=== PATIENT | male | born 1975 | race Caucasian/White ===

== ENCOUNTER 2016-11-08 08:56 | Emergency (ER) | payer BC, OTHER ==
[~2016-11-08] VITALS: Ht 177.8 cm; Wt 106.6 kg
[~2016-11-08 08:56] MED LIST: DOCU100C5 PO; ENAL20TA PO; HYDR-2666 PO; IBUP100T8 PO; MELO15TA6 PO; METO-269 PO; METR500T PO; TAMS0.4C97 PO
[2016-11-08 09:04] VITALS: BP 138/79
--- NOTE | 2016-11-08 09:52 | RAD ---
Indication pain. An AP view of the pelvis was obtained as well as AP and frog leg views targeted to the right hip. No acute or significant bony finding is seen. There are probable mild degenerative changes involving both hips
--- NOTE | 2016-11-08 09:57 | PHYS DOC ---
Past Medical History Past Medical History: Depression, Diverticulitis, Hypertension Additional Past Medical Histor: OSTEOARTHRITIS Past Surgical History: Other Additional Past Surgical Histo: COLON RE-SECTION, BILATERAL KNEE SCOPES Alcohol Use: None Drug Use: None Adult General Chief Complaint Chief Complaint: HIP PAIN [facility] HPI Patient is a 41 year old male presents to the emergency department with a history of right hip pain and discomfort that started last night. Patient states he has taken Avilla 7.5 with minimal relief. Patient states he has a history of osteoarthritis. Patient states that he does see pain management who recommended Naproxen for the pain in which patient states does not help. He states he has decrease ROM, denies numbness or tingling in the lower extremity. He denies trauma or injury. Review of Systems Review of Systems Constitutional: Denies fever or chills [] Eyes: Denies change in visual acuity, redness, or eye pain [] HENT: Denies nasal congestion or sore throat [] Respiratory: Denies cough or shortness of breath [] Cardiovascular: No additional information not addressed in HPI [] GI: Denies abdominal pain, nausea, vomiting, bloody stools or diarrhea [] : Denies dysuria or hematuria [] Musculoskeletal: Denies back pain. C/o right hip pain Integument: Denies rash or skin lesions [] Neurologic: Denies headache, focal weakness or sensory changes [] Endocrine: Denies polyuria or polydipsia [] Allergies Allergies Allergies Coded Allergies Type Severity Reaction Last Updated Verified lactose Adverse Reaction Unknown Diarrhea 05/19/13 Yes Physical Exam Physical Exam Constitutional: Well developed, well nourished, no acute distress, non-toxic appearance. [] HENT: Normocephalic, atraumatic, bilateral external ears normal, oropharynx moist, no oral exudates, nose normal. [] Eyes: PERRLA, EOMI, conjunctiva normal, no discharge. [] Neck: Normal range of motion, no tenderness, supple, no stridor. [] Cardiovascular:Heart rate regular rhythm, no murmur [] Lungs & Thorax: Bilateral breath sounds clear to auscultation [] Skin: Warm, dry, no erythema, no rash. [] Back: No tenderness Extremities: Right hip tenderness, no cyanosis, no clubbing, ROM intact, no edema. Decrease ROM noted with the right hip, patient is unable to straighten leg completely out. Discomfort noted with adduction of the right hip. Peripheral pulse 2+ cap refill brisk < 2 seconds. Patient with good sensation noted to the right foot. Neurologic: Alert and oriented X 3, normal motor function, normal sensory function, no focal deficits noted. [] Psychologic: Affect normal, judgement normal, mood normal. [] Current Patient Data Vital Signs Vital Signs Date Time Temp Pulse Resp B/P (MAP) Pulse Ox O2 Delivery O2 Flow Rate FiO2 11/08/16 09:04 98.0 83 18 94 Room Air 98.0 EKG EKG [] Radiology/Procedures Radiology/Procedures [facility] [address] [place] [address] IMAGING REPORT Signed PATIENT: SHEREEN DEWEY ACCOUNT: [id number] : 1975 LOCATION: ER AGE: 41 SEX: M EXAM STATUS: PRE ER ORD. PHYSICIAN: DIPIKA MCKEON APRN REASON: feels like hip is popped out PROCEDURE: HIP RIGHT 2V WITH PELVIS Indication pain. An AP view of the pelvis was obtained as well as AP and frog leg views targeted to the right hip. No acute or significant bony finding is seen. There are probable mild degenerative changes involving both hips DICTATED and SIGNED BY: YOLY VENEGAS MD DATE: 11/08/16 0948 CC: DIPIKA MCKEON APRN; CARLI GLASS DO ~ [] Course & Med Decision Making Course & Med Decision Making Pertinent Labs and Imaging studies reviewed. (See chart for details) Patient was provided with Percocet here in the emergency department. Patient x- ray of negative for abnormality. Patient will be discharge home with percocet for severe pain. Patient was instructed this medication will cause drowsiness do not take if you need to be alert and oriented. Patient was recommended to followup with pain management for further pain control. Patient agrees with discharge instructions, treatment regimen and followup recommendations. Signs and symptoms to return to the emergency department has been provided. [] Dragon Disclaimer Dragon Disclaimer This electronic medical record was generated, in whole or in part, using a voice recognition dictation system. Departure Departure Impression: Primary Impression: Right hip pain Disposition: HOME, SELF-CARE Condition: STABLE Referrals: CARLI GLASS DO (PCP) Patient Instructions: Hip Pain Additional Instructions: Activity as tolerated Stop taking the Avilla at this time Percocet for severe pain and discomfort. This medication will cause drowsiness do not take if you need to be alert and oriented Followup with your pain control physician for further pain management. Return to emergency department as needed for signs and symptoms that become worse. Scripts Oxycodone/Apap 5-325 (PERCOCET 5-325 MG TABLET) 1 Each Tablet 1-2 TAB PO Q4-6HRS, #15 TAB Prov: DIPIKA MCKEON APRN 11/08/16 DIPIKA MCKEON APRN November 08, 2016 09:57
[2016-11-08] MEDS ORDERED: oxyCODONE/APAP 5/325 1 TAB TABLET PO ONE (10:00)
[2016-11-08] MEDS ORDERED: OXYC-323 PO (10:11)
== END 2016-11-08 10:24 | disposition home or self-care (01) ==
LOC: ER 08:56
DX: M25.551 Pain in right hip (principal); F32.9 Major depressive disorder, single episode, unspecified; I10 Essential (primary) hypertension; M19.90 Unspecified osteoarthritis, unspecified site; Z91.011 Allergy to milk products
CPT/HCPCS: 73502; 99284-25

== ENCOUNTER → 2018-01-09 | Outpatient (CLI) | payer OTHER ==
[~2018-01-09] MED LIST changes: -DOCU100C5 PO; -ENAL20TA PO; -HYDR-2666 PO; -IBUP100T8 PO; -MELO15TA6 PO; -METO-269 PO; -METR500T PO; +REGADENOSON 0.4 MG/5 ML DISP.SYRIN. IV; -TAMS0.4C97 PO
== END | disposition home or self-care (01) ==
LOC: PCVCIMAG 08:28
DX: I10 Essential (primary) hypertension (principal); I63.9 Cerebral infarction, unspecified; R00.1 Bradycardia, unspecified; R07.9 Chest pain, unspecified
CPT/HCPCS: 78452; 93017; 93306; A9500; J2785

== ENCOUNTER 2018-11-12 06:31 | Emergency (ER) | payer OTHER ==
[~2018-11-12] VITALS: Ht 177.8 cm; Wt 118.8 kg
[~2018-11-12 06:31] MED LIST changes: +DOCU100C28 PO; +ENAL20TA PO; +HYDR-2761 PO; +IBUP100T8 PO; +MELO15TA6 PO; +METO-269 PO; +METR500T PO; +OXYC1TAB15 PO; -REGADENOSON 0.4 MG/5 ML DISP.SYRIN. IV; +TAMS0.4C97 PO
--- NOTE | 2018-11-12 06:51 | PHYS DOC ---
Past Medical History Past Medical History: Arthritis, Depression, Diverticulitis, Hypertension, Kidney Stone Additional Past Medical Histor: OSTEOARTHRITIS Past Surgical History: Other Additional Past Surgical Histo: COLON RE-SECTION, BILATERAL KNEE SCOPES Alcohol Use: None Drug Use: None Adult General Chief Complaint Chief Complaint: FLANK PAIN HPI HPI Patient is a 43 year old male who presents with complaining of left flank pain. Patient states he woke up at 2 AM because of severe left flank pain with radiation to left lower quadrant and genital area as a constant episodes of sharp and stabbing pain and more than 10 episodes of vomiting. Patient complaining of decrease of urine output without change of color. Patient denies fever and chills, diarrhea and constipation, chest pain and shortness of breath. Patient states he had history of kidney stone and thinks he had the same problem. Patient states he had left flank pain 2 days ago that last about 3 hours and resolved spontaneously. Review of Systems Review of Systems Constitutional: Denies fever or chills [] Eyes: Denies change in visual acuity, redness, or eye pain [] HENT: Denies nasal congestion or sore throat [] Respiratory: Denies cough or shortness of breath [] Cardiovascular: No additional information not addressed in HPI [] GI: Denies abdominal pain, bloody stools or diarrhea, reports nausea and vomiting [] : Denies dysuria or hematuria , reports flank pain[] Musculoskeletal: Denies back pain or joint pain [] Integument: Denies rash or skin lesions [] Neurologic: Denies headache, focal weakness or sensory changes [] Endocrine: Denies polyuria or polydipsia [] All other systems were reviewed and found to be within normal limits, except as documented in this note. Current Medications Current Medications Current Medications Medications (Trade) Dose Ordered Sig/Tsering Start Time Stop Time Status Last Admin Dose Admin Hydromorphone HCl (Dilaudid) 2 mg 1X ONCE 11/12/18 07:30 11/12/18 07:31 DC 11/12/18 07:35 2 MG Ketorolac Tromethamine (Toradol 30mg Vial) 30 mg 1X ONCE 11/12/18 07:00 11/12/18 07:01 DC 11/12/18 06:56 30 MG Ondansetron HCl (Zofran) 4 mg 1X ONCE 11/12/18 07:00 11/12/18 07:01 DC 11/12/18 06:56 4 MG Sodium Chloride 1,000 ml @ 1,000 mls/hr Q1H 11/12/18 07:00 11/12/18 07:59 DC 11/12/18 06:58 1,000 MLS/HR Tamsulosin HCl (Flomax) 0.4 mg 1X ONCE 11/12/18 08:15 11/12/18 08:16 DC Allergies Allergies Allergies Coded Allergies Type Severity Reaction Last Updated Verified lactose Adverse Reaction Unknown Diarrhea 05/19/13 Yes Physical Exam Physical Exam Constitutional: Well developed, well nourished, moderate distress, non-toxic appearance. [] HENT: Normocephalic, atraumatic, oropharynx moist. Eyes: PERRLA, EOMI, conjunctiva normal, no discharge. [] Neck: Normal range of motion, no tenderness, supple, no stridor. [] Cardiovascular:Heart rate regular rhythm, no murmur [] Lungs & Thorax: Bilateral breath sounds clear to auscultation [] Abdomen: Bowel sounds normal, soft, no tenderness, no masses, no pulsatile masses. [] Skin: Warm, dry, no erythema, no rash. [] Back: No tenderness, no CVA tenderness. [] Extremities: No tenderness, no cyanosis, no clubbing, ROM intact, no edema. [] Neurologic: Alert and oriented X 3, normal motor function, normal sensory function, no focal deficits noted. [] Psychologic: Affect normal, judgement normal, mood normal. [] Current Patient Data Vital Signs Vital Signs Date Time Temp Pulse Resp B/P (MAP) Pulse Ox O2 Delivery O2 Flow Rate FiO2 11/12/18 07:35 16 11/12/18 06:34 97.9 86 179/100 (126) 99 Room Air 97.9 Lab Values Laboratory Tests Test 11/12/18 06:10 White Blood Count 10.2 x10^3/uL (4.0-11.0) Red Blood Count 5.14 x10^6/uL (4.30-5.70) Hemoglobin 15.3 g/dL (13.0-17.5) Hematocrit 45.1 % (39.0-53.0) Mean Corpuscular Volume 88 fL (79-100) Mean Corpuscular Hemoglobin 30 pg (25-35) Mean Corpuscular Hemoglobin Concent 34 g/dL (31-37) Red Cell Distribution Width 13.8 % (11.5-14.5) Platelet Count 191 x10^3/uL (140-400) Neutrophils (%) (Auto) 67 % (31-73) Lymphocytes (%) (Auto) 27 % (24-48) Monocytes (%) (Auto) 5 % (0-9) Eosinophils (%) (Auto) 0 % (0-3) Basophils (%) (Auto) 0 % (0-3) Neutrophils # (Auto) 6.9 x10^3uL (1.8-7.7) Lymphocytes # (Auto) 2.8 x10^3/uL (1.0-4.8) Monocytes # (Auto) 0.5 x10^3/uL (0.0-1.1) Eosinophils # (Auto) 0.0 x10^3/uL (0.0-0.7) Basophils # (Auto) 0.0 x10^3/uL (0.0-0.2) Urine Collection Type Unknown Urine Color Yellow Urine Clarity Cloudy Urine pH 5.5 Urine Specific [place] >=1.030 Urine Protein 30 mg/dL (NEG-TRACE) Urine Glucose (UA) Negative mg/dL (NEG) Urine Ketones (Stick) Negative mg/dL (NEG) Urine Blood Large (NEG) Urine Nitrite Negative (NEG) Urine Bilirubin Negative (NEG) Urine Urobilinogen Dipstick 0.2 mg/dL (0.2 mg/dL) Urine Leukocyte Esterase Trace (NEG) Urine RBC Tntc /HPF (0-2) Urine WBC 1-4 /HPF (0-4) Urine Squamous Epithelial Cells Occ /LPF Urine Bacteria Few /HPF (0-FEW) Urine Mucus Marked /LPF Sodium Level 145 mmol/L (136-145) Potassium Level 3.7 mmol/L (3.5-5.1) Chloride Level 105 mmol/L (98-107) Carbon Dioxide Level 26 mmol/L (21-32) Anion Gap 14 (6-14) Blood Urea Nitrogen 18 mg/dL (8-26) Creatinine 1.2 mg/dL (0.7-1.3) Estimated GFR (Cockcroft-Gault) 66.4 BUN/Creatinine Ratio 15 (6-20) Glucose Level 120 mg/dL (70-99) H Calcium Level 9.9 mg/dL (8.5-10.1) Total Bilirubin 0.5 mg/dL (0.2-1.0) Aspartate Amino Transferase (AST) 23 U/L (15-37) Alanine Aminotransferase (ALT) 40 U/L (16-63) Alkaline Phosphatase 18 U/L (46-116) L Total Protein 8.3 g/dL (6.4-8.2) H Albumin 4.6 g/dL (3.4-5.0) Albumin/Globulin Ratio 1.2 (1.0-1.7) Lipase 86 U/L (73-393) Laboratory Tests 11/12/18 06:10 Laboratory Tests 11/12/18 06:10 EKG EKG [] Radiology/Procedures Radiology/Procedures [facility] [address] [place] [address] IMAGING REPORT Signed PATIENT: SHEREEN SAUCEDO ACCOUNT: [id number] : 1975 LOCATION: ER AGE: 43 SEX: M EXAM STATUS: REG ER ORD. PHYSICIAN: CASEY JACKSON MD REASON: left flank pain PROCEDURE: CT ABDOMEN PELVIS WO CONTRAST CT Abdomen and Pelvis without contrast History: Left flank pain Technique: Noncontrast CT imaging was performed of the abdomen and pelvis. Multiplanar images are reviewed. Exposure: One or more of the following individualized dose reduction techniques were utilized for this examination: 1. Automated exposure control 2. Adjustment of the mA and/or kV according to patient size 3. Use of iterative reconstruction technique. Comparison: April 22, 2013 Findings: There is very mild left hydroureteronephrosis, 2 to 3 mm calculus near the left ureterovesical junction. There is inferior left renal calculus about 8 to 9 mm, adjacent small 1 to 2 mm calculus present. There is slightly exophytic hypodense lesion of the inferior left kidney estimated about 23 mm, density measurements of a cyst. There is no right hydronephrosis or calculus. There is a small hypodense lesion of the mid right kidney difficult characterize although probably a cyst with density measurements of 10 Hounsfield units. Accurate evaluation of abdominal visceral organs is limited without intravenous contrast. There is diffuse hepatic steatosis. No obvious focal abnormality is identified of the pancreas or spleen. Gallbladder is present without obvious intraluminal abnormality by CT. There is no adrenal nodularity. Accurate evaluation of bowel is limited without oral contrast. Bowel is not significantly dilated. There is no free fluid or free air. There apparently has been appendectomy. There is mild calcified plaque abdominal aorta and iliac arteries.. Impression: 1. There is very mild left hydroureteronephrosis, small 2 to 3 mm calculus at the left ureterovesical junction. There are left renal calculi. 2. There is inferior left renal cyst, also likely small cyst of the mid right kidney. 3. There is diffuse hepatic steatosis. Electronically signed by: Carli Meng MD (11/12/2018 7:50 AM) [facility] DICTATED and SIGNED BY: CARLI MENG MD DATE: 11/12/18 0750 Course & Med Decision Making Course & Med Decision Making Pertinent Labs and Imaging studies reviewed. (See chart for details) Evaluation of patient in ER showed 43-year-old male patient with history of previous kidney stone presented with left flank pain since 2 AM. Patient had moderate distress and treated with IV fluid, Zofran, Dilaudid and Toradol and felt better. CT of abdomen and pelvis showed 2 or 3 mm stone in the left UV junction. Patient was advised to strain all of his urine and increase fluid intake and follow up with on-call urologist. Patient is taking Celebrex and was advised to continue. Patient was told to hold on hydrocodone while taking Percocet. Dragon Disclaimer Dragon Disclaimer This electronic medical record was generated, in whole or in part, using a voice recognition dictation system. Departure Departure Impression: Primary Impression: Renal colic on left side Additional Impression: Ureterolithiasis Disposition: 01 HOME, SELF-CARE (at 0815) Condition: IMPROVED Referrals: CARLI GLASS DO (PCP) JANICE JOEL MD Patient Instructions: Diet for Kidney Stones, Kidney Stones, Urine Strainer Additional Instructions: Drink plenty of liquids Follow-up with your primary care physician in 3-5 days Return to ER if not getting better Follow-up with on-call urologist in 2 or 3 days Strain all of your urine Scripts Oxycodone/Apap 5-325 (PERCOCET 5-325 MG TABLET ) 1 Each Tablet 1 TAB PO PRN Q6HRS PRN for PAIN, #12 TAB 0 Refills Prov: CASEY JACKSON MD 11/12/18 Ondansetron Hcl (ZOFRAN) 4 Mg Tablet 1 TAB PO PRN Q6-8HRS for nausea, #12 TAB Prov: CASEY JACKSON MD 11/12/18 Tamsulosin Hcl (FLOMAX) 0.4 Mg Cap.er.24h 1 CAP PO DAILY, #14 CAP 0 Refills Prov: CASEY JACKSON MD 11/12/18 Problem Qualifiers CASEY JACKSON MD November 12, 2018 06:51
[2018-11-12] MEDS ORDERED: HYDROmorphone 2 MG/ML VIAL IV ONE ×3 (07:00→08:45)
[2018-11-12] MEDS ORDERED: IV NORMAL SALINE 1000ML BAG 1,000 ML IV SCH (07:00)
[2018-11-12] MEDS ORDERED: KETOROLAC 30 MG/ML VIAL. IV ONE (07:00)
[2018-11-12] MEDS ORDERED: ONDANSETRON PF 4 MG/2 ML VIAL. IV ONE (07:00)
[2018-11-12 07:01] LABS: BASO % 0 % (0-3); EOS % 0 % (0-3); HEMATOCRIT 45.1 % (39.0-53.0); HEMOGLOBIN 15.3 g/dL (13.0-17.5); LYMPH # 2.8 x10^3/uL (1.0-4.8); LYMPH % 27 % (24-48); MEAN CORPUSCULAR HEMOGLOBIN 30 pg (25-35); MEAN CORPUSCULAR HGB CONC 34 g/dL (31-37); MEAN CORPUSCULAR VOLUME 88 fL (79-100); MONO # 0.5 x10^3/uL (0.0-1.1); MONO % 5 % (0-9); NEUT # 6.9 x10^3uL (1.8-7.7); NEUT % 67 % (31-73); PLATELET COUNT 191 x10^3/uL (140-400); RED BLOOD COUNT 5.14 x10^6/uL (4.30-5.70); RED CELL DISTRIBUTION WIDTH 13.8 % (11.5-14.5); WHITE BLOOD COUNT 10.2 x10^3/uL (4.0-11.0)
[2018-11-12 07:02] LABS: BILIRUBIN,URINE NEGATIVE (NEG); CLARITY,URINE CLOUDY; NITRITE,URINE NEGATIVE (NEG); PH,URINE 5.5; PROTEIN,URINE 30 mg/dL (NEG-TRACE); UROBILINOGEN,URINE 0.2 mg/dL (0.2 mg/dL)
[2018-11-12 07:10] LABS: COLOR,URINE YELLOW; RBC,URINE TNTC /HPF (0-2); SQUAMOUS EPITHELIAL CELL,UR OCC /LPF
[2018-11-12 07:12] LABS: BACTERIA,URINE FEW /HPF (0-FEW)
[2018-11-12 07:18] LABS: CALCIUM 9.9 mg/dL (8.5-10.1); CREATININE 1.2 mg/dL (0.7-1.3); GFR 66.4; POTASSIUM 3.7 mmol/L (3.5-5.1)
[2018-11-12 07:25] LABS: ALBUMIN 4.6 g/dL (3.4-5.0); ALBUMIN/GLOBULIN RATIO 1.2 (1.0-1.7); TOTAL BILIRUBIN 0.5 mg/dL (0.2-1.0); TOTAL PROTEIN 8.3 g/dL (6.4-8.2)
--- NOTE | 2018-11-12 07:53 | RAD ---
CT Abdomen and Pelvis without contrast History: Left flank pain Technique: Noncontrast CT imaging was performed of the abdomen and pelvis. Multiplanar images are reviewed. Exposure: One or more of the following individualized dose reduction techniques were utilized for this examination: 1. Automated exposure control 2. Adjustment of the mA and/or kV according to patient size 3. Use of iterative reconstruction technique. Comparison: April 22, 2013 Findings: There is very mild left hydroureteronephrosis, 2 to 3 mm calculus near the left ureterovesical junction. There is inferior left renal calculus about 8 to 9 mm, adjacent small 1 to 2 mm calculus present. There is slightly exophytic hypodense lesion of the inferior left kidney estimated about 23 mm, density measurements of a cyst. There is no right hydronephrosis or calculus. There is a small hypodense lesion of the mid right kidney difficult characterize although probably a cyst with density measurements of 10 Hounsfield units. Accurate evaluation of abdominal visceral organs is limited without intravenous contrast. There is diffuse hepatic steatosis. No obvious focal abnormality is identified of the pancreas or spleen. Gallbladder is present without obvious intraluminal abnormality by CT. There is no adrenal nodularity. Accurate evaluation of bowel is limited without oral contrast. Bowel is not significantly dilated. There is no free fluid or free air. There apparently has been appendectomy. There is mild calcified plaque abdominal aorta and iliac arteries.. Impression: 1. There is very mild left hydroureteronephrosis, small 2 to 3 mm calculus at the left ureterovesical junction. There are left renal calculi. 2. There is inferior left renal cyst, also likely small cyst of the mid right kidney. 3. There is diffuse hepatic steatosis. Electronically signed by: Jeff Meng MD (11/12/2018 7:50 AM) [facility]
[2018-11-12] MEDS ORDERED: TAMSULOSIN 0.4 MG CAP.ER.24H. PO ONE (08:15)
[2018-11-12] MEDS ORDERED: ONDA4TAB7 PO (08:19)
[2018-11-12] MEDS ORDERED: TAMS0.4C97 PO (08:19)
[2018-11-12] MEDS ORDERED: OXYC1TAB15 PO (08:19)
[2018-11-12 09:00] VITALS: BP 144/75
== END 2018-11-12 09:00 | disposition home or self-care (01) ==
LOC: ER 07:11
DX: N13.2 Hydronephrosis with renal and ureteral calculous obstruction (principal); R11.2 Nausea with vomiting, unspecified; I10 Essential (primary) hypertension
CPT/HCPCS: 36415; 74176; 80053; 81001; 83690; 85025; 87086; 96374; 96375; 96376; 99285; J1170; J1885; J2405; J7030